=== PATIENT | male | born 1965 | race Caucasian/White ===

== ENCOUNTER → 2020-04-29 | Outpatient (CLI) | payer OTHER ==
[~2020-04-29] MED LIST: HYDR-2763 PO; OXYC-325 PO
== END | disposition home or self-care (01) ==
LOC: LAB 15:29
PROVIDERS: ATTEND Orthopaedic Surgery
DX: Z01.812 Encounter for preprocedural laboratory examination (principal)
CPT/HCPCS: 36415; U0003-CS

== ENCOUNTER 2020-05-01 05:55 | Day surgery (SDC) | payer OTHER ==
[~2020-05-01] VITALS: Ht 157.5 cm; Wt 79.4 kg
[~2020-05-01 05:55] MED LIST changes: -OXYC-325 PO
[2020-05-01] MEDS ORDERED: ONDANSETRON PF 4 MG/2 ML VIAL. IV PRN (07:00)
[2020-05-01] MEDS ORDERED: PROCHLORPERAZINE 10 MG/2 ML VIAL. IV PRN (07:00)
[2020-05-01] MEDS ORDERED: fentaNYL PF VIAL 100 MCG/2 ML VIAL IV PRN (07:00)
[2020-05-01] MEDS ORDERED: ceFAZolin 2GM PREMIX 2 GM/50 ML BAG IV ONE (07:00)
[2020-05-01] MEDS ORDERED: IV RINGERS,LACTATED 1000ML 1,000 ML IV SCH (07:00)
[2020-05-01] MEDS ORDERED: HYDROmorphone 2 MG/ML VIAL IV PRN (07:00)
[2020-05-01] MEDS ORDERED: MORPHINE SULFATE 2 MG/ML VIAL. IV PRN (07:00)
[2020-05-01] MEDS ORDERED: LIDOCAINE 1% PF 2 ML VIAL. ID PRN (07:00)
[2020-05-01] MEDS ORDERED: BUPIVACAINE MPF 0.5% 30 ML VIAL. ONE (07:08)
[2020-05-01] MEDS ORDERED: MIDAZOLAM HCL/PF 2 MG/2 ML VIAL. ONE (07:13)
[2020-05-01] MEDS ORDERED: fentaNYL PF VIAL 100 MCG/2 ML VIAL ONE ×2 (07:13→09:18)
[2020-05-01] MEDS ORDERED: DEXAMETHASONE SOD PHOS 4 MG/ML VIAL ONE (07:13)
[2020-05-01] MEDS ORDERED: ONDANSETRON PF 4 MG/2 ML VIAL. ONE (07:13)
[2020-05-01] MEDS ORDERED: PROPOFOL 10 MG/ML (20ML) VIAL. IV ONE (07:13)
[2020-05-01] MEDS ORDERED: LIDOCAINE 2% PF 5 ML VIAL. ONE (07:13)
[2020-05-01] MEDS ORDERED: OXYC-325 PO (07:25)
--- NOTE | 2020-05-01 07:27 | DISCH ---
DISCHARGE INSTRUCTIONS Condition on Discharge Condition on Discharge: Stable Activity After Discharge Activity Instructions for Disc: Other, see below (Fine motor use of right hand such as grasping silverware writing typing permitted, no hard grasp or lifting) Weight Bearing Status after Di: Non weight bearing Diet after Discharge Diet after Discharge: Regular Wound Incision Care Wound/Incision Care: Ice to area for comfort, Keep wound elevated, Do not change dressing (Keep dressing dry in shower) Contacting the DRMichael after DC Call your doctor for: Concerns you may have Follow-Up Follow up with: Dr. Fernandez 10 days HELEN FERNANDEZ MD May 01, 2020 07:27
[2020-05-01] MEDS ORDERED: SEVOFLURANE 61 TO 120 MINUTES. IH ONE (08:25)
[2020-05-01] MEDS ORDERED: GLYCOPYRROLATE 1 MG/5 ML VIAL. ONE (08:25)
[2020-05-01] MEDS ORDERED: KETOROLAC 30 MG/ML VIAL. ONE (08:37)
[2020-05-01] MEDS: fentaNYL PF VIAL 100 MCG/2 ML VIAL IV PRN ×2 (09:22→09:40)
[2020-05-01] MEDS ORDERED: oxyCODONE/APAP 5/325 1 TAB TABLET PO ONE (09:45)
[2020-05-01 09:53] VITALS: BP 133/82
--- NOTE | 2020-05-01 13:55 | PDOC4 ---
Operative Note Operative Note Date of surgery: 05/01/2020 Preoperative diagnosis: Displaced intra-articular right distal radius fracture Postoperative diagnosis same with 2 part intra-articular involvement Operative procedure: ORIF intra-articular 2 part right distal radius fracture Surgeon: Jim Staff Genetic Counselor: Oswaldo collado Anesthesia: General Estimated blood loss: 10 cc Complications: None Operative indications: Please see my orthopedic operative note of 2 days ago for detailed operative indications and note that we had discussed the possible operative complications of infection nerve or blood vessel damage medical or other anesthetic complications and even under the best of circumstances some stiffness soreness in the joint and the rationale is for good alignment improving mechanical advantage and mitigating any joint malalignment that would tend to contribute to premature arthritis All his questions were answered he wishes to proceed with surgical evaluation and treatment. Operative text: Patient was identified procedure verified patient placed in the supine position on the operating table. After adequate amounts of general anesthesia were administered the right upper extremity was prepped and draped in standard sterile fashion with an upper arm tourniquet. After timeout was performed patient procedure identified and verified a longitudinal incision was made over the flexor carpi radialis and a volar Luis approach carried out to the distal radius subperiosteal dissection was carried out and reduction carried out under fluoroscopic guidance and a standard Grace DVR distal radial locking plate was aligned properly and a nonlocking shaft screw placed in the sliding hole to allow minor alignment adjustments. Distal locking screws were initially placed under fluoroscopic guidance individually including 1 multidirectional locking screw on the distal row and verified to be in good position not violating the joint space. Proximal row locking screws and nonlocking shaft screws were placed and all hardware placement was checked under multiple fluoroscopic views and anatomic alignment was noted at the joint space with christianity of volar tilt. Thorough irrigation carried out normal saline solution subcutaneous closure with buried Vicryl sutures subcuticular Monocryl Mastisol Steri-Strips and a well-padded volar splint were placed the fingers were noted to be warm pink following deflation of tourniquet patient was returned to recovery room stable condition having tolerated procedure well. Oswaldo collado was present for the procedure assisted in the positioning prepping draping retraction closure and dressing splint placement HELEN TRAN MD May 01, 2020 13:55
== END 2020-05-01 10:30 | disposition home or self-care (01) ==
LOC: SURG 05:55
PROVIDERS: ATTEND Orthopaedic Surgery
DX: S52.571A Other intraarticular fracture of lower end of right radius, initial encounter for closed fracture (principal); E66.9 Obesity, unspecified; Z68.32 Body mass index [BMI] 32.0-32.9, adult; X58.XXXA Exposure to other specified factors, initial encounter; Y93.89 Activity, other specified; Y92.89 Other specified places as the place of occurrence of the external cause; Y99.8 Other external cause status
CPT/HCPCS: 25608; 76000; C1713; J0696; J1100; J1885; J2250; J2405; J2704; J3010; J3490